=== PATIENT | female | born 1980 | race Caucasian/White ===

== ENCOUNTER 2020-04-30 12:42 | Emergency (ER) | payer OTHER ==
[~2020-04-30] VITALS: Ht 175.3 cm; Wt 124.7 kg
[2020-04-30 13:14] LABS: URINE BILIRUBIN NEGATIVE (Negative); URINE BLOOD NEGATIVE (Negative); URINE CLARITY CLEAR; URINE COLOR YELLOW; URINE GLUCOSE-RANDOM NEGATIVE (Negative); URINE KETONES NEGATIVE (Negative); URINE LEUKOCYTES-REFLEX NEGATIVE (Negative); URINE NITRITE-REFLEX NEGATIVE (Negative); URINE PROTEIN NEGATIVE (Negative); URINE SPECIFIC GRAVITY 1.015 (1.005-1.030); URINE UROBILINOGEN 0.2 E.U./dl (0.2-1.0)
[2020-04-30 13:21] LABS: AMP/METHAMP Negative (Negative); BARBITURATES Negative (Negative); BENZODIAZEPINES Negative (Negative); COCAINE Negative (Negative); METHADONE Negative (Negative); OPIATES Negative (Negative); PCP Negative (Negative); THC Negative (Negative)
[2020-04-30 13:27] LABS: ABSOLUTE BASOPHILS 0.1 thou/uL (0.0-0.2); ABSOLUTE EOSINOPHILS 0.1 thou/uL (0.0-0.7); ABSOLUTE LYMPHOCYTES 1.3 thou/uL (0.8-5.3); ABSOLUTE MONOCYTES 0.3 thou/uL (0.0-1.2); ABSOLUTE NEUTROPHILS 3.1 thou/uL (1.6-8.1); BASOPHILS 1.1 %; EOSINOPHILS 1.2 %; HEMATOCRIT 36.8 % (37.0-47.0); HEMOGLOBIN 12.6 gm/dL (12.0-15.0); LYMPHOCYTES 27.2 %; MCH 28.6 pg (26.0-34.0); MCHC 34.2 g/dL (28.0-37.0); MCV 83.6 fL (80.0-100.0); MONOCYTES 5.9 %; MPV 8.6 fl. (7.2-11.1); NUCLEATED RBCS 0 /100WBC; PLATELET COUNT* 222 thou/uL (150-400); POLYS 64.6 %; RDW-CV 13.8 % (10.5-14.5); WBC 4.7 thou/uL (4.0-11.0)
[2020-04-30 13:34] LABS: CALCIUM 8.5 mg/dL (8.5-10.1); CREATININE 0.8 mg/dL (0.6-1.3)
[2020-04-30 13:35] LABS: APTT 25.7 Seconds (25.0-31.3); PROTIME 10.2 Seconds (9.20-11.50)
[2020-04-30 13:39] LABS: ALBUMIN 3.8 g/dL (3.4-5.0); TOTAL BILIRUBIN 0.7 mg/dL (<0.1-1.0); TOTAL PROTEIN 7.5 g/dL (6.4-8.2)
[2020-04-30 13:52] LABS: ALCOHOL < 10 mg/dL (<10); SALICYLATE < 2.8 mg/dL (2.8-20.0)
[2020-04-30 13:54] LABS: ACETAMINOPHEN < 2 ug/mL (10-30)
[2020-04-30] MEDS ORDERED: ONDANSETRON HCL4 M2 PO (14:10)
[2020-04-30] MEDS ORDERED: ZANAFLEX4 MG PO (14:10)
[2020-04-30 14:21] VITALS: BP 123/76
--- NOTE | 2020-05-01 14:31 | EKG ---
[place] [address] ELECTROCARDIOGRAM REPORT Name: MARIO HARO Room: [facility]#: [id number] Admission: 04/30/20 Attend Phys: Discharge: 04/30/20 Date of : 76 Date of Service: 04/30/20 1413 Report #: [id number] THIS REPORT FOR: //name// [facility] ED Test Date: 2020-04-30 Test Time: 14:13:41 Pat Name: MARIO HARO Department: Room: Gender: F [employer]: : [id number] Requested By: Deepika Johnson Order Number: [id number] MD: Dejan Ford Measurements Intervals Prim Rate: 76 P: 60 OR: 163 QRS: 58 QRSD: 106 T: 39 QT: 378 QTc: 426 Interpretive Statements Sinus rhythm Baseline wander in lead(s) II,III,aVR,aVL,aVF,V1,V2,V3,V4,V5,V6 No previous ECG available for comparison Electronically Signed On 05-01-2020 14:31:07 CDT by Dejna Ford [email or web address] <ELECTRONICALLY SIGNED> By: Dejan Ford MD, FAC 05/01/20 1431 1413 1413 Dejan Ford MD, [facility] /EPI
== END 2020-04-30 14:23 | disposition home or self-care (01) ==
LOC: M.ERS 12:42
PROVIDERS: Nurse Practitioner Family
DX: S06.0X1A Concussion with loss of consciousness of 30 minutes or less, initial encounter (principal); S16.1XXA Strain of muscle, fascia and tendon at neck level, initial encounter; S00.83XA Contusion of other part of head, initial encounter; S70.12XA Contusion of left thigh, initial encounter; S70.11XA Contusion of right thigh, initial encounter; S80.11XA Contusion of right lower leg, initial encounter; S90.32XA Contusion of left foot, initial encounter; S90.31XA Contusion of right foot, initial encounter; M54.2 Cervicalgia; Z88.6 Allergy status to analgesic agent; W18.39XA Other fall on same level, initial encounter; Y93.89 Activity, other specified; Y92.89 Other specified places as the place of occurrence of the external cause; Y99.8 Other external cause status